=== PATIENT | female | born 1985 | race Caucasian/White ===

== ENCOUNTER 2016-10-20 10:46 | Inpatient (IN) | payer MEDICAID ==
[~2016-10-20] VITALS: Ht 165.1 cm; Wt 59.0 kg
[2016-10-20] VITALS (7 sets, daily range): BP systolic 118–144; BP diastolic 68–86
[~2016-10-20 10:46] MED LIST: BUPR-93 PO; CILO2.5OS OS; CIPR-278 PO
[2016-10-20] MEDS ORDERED: DIVA125T PO (11:09)
[2016-10-20] MEDS ORDERED: PANTOPRAZOLE SODIUM 40 MG DR TABLET PO ONE (11:45)
[2016-10-20] MEDS ORDERED: ONDANSETRON HCL 4 MG/2 ML VIAL IM ONE (11:45)
[2016-10-20 12:20] LABS: BASOPHILS % (AUTO) 0.9 % (0.0-2.0); EOSINOPHILS % (AUTO) 0.2 % (1.0-6.0); HEMATOCRIT 54.2 % (36-46); HEMOGLOBIN 17.3 g/dL (12.0-16.0); LYMPHOCYTES # (AUTO) 3.4 K/uL (1.0-4.8); LYMPHOCYTES % (AUTO) 18.9 % (22.0-44.0); MEAN CORPUSCULAR HEMOGLOBIN 26.1 pg (26.0-34.0); MEAN CORPUSCULAR HGB CONC 31.9 G/dL (31.0-37.0); MEAN CORPUSCULAR VOLUME 82 fL (80-100); MONOCYTES # (AUTO) 0.9 K/uL (0.1-1.0); MONOCYTES % (AUTO) 5.2 % (2.0-9.0); NEUTROPHILS # (AUTO) 13.4 K/uL (1.8-7.7); NEUTROPHILS % (AUTO) 74.8 % (40.0-70.0); PLATELET COUNT (AUTO) 391 K/uL (150-450); RED BLOOD CELL COUNT(AUTO) 6.61 MIL/uL (4.00-5.20); WHITE BLOOD COUNT (AUTO) 17.9 K/uL (4.5-11.0)
[2016-10-20 12:36] LABS: ANION GAP 11 mmol/L (8-16); CALCIUM, TOTAL 9.6 mg/dL (8.8-10.5); CARBON DIOXIDE 29 mmol/L (22-29); CHLORIDE 101 mmol/L (98-107); CREATININE 0.88 mg/dL (0.60-1.30); GLOMERULAR FILTR. RATE CALC > 60 mL/min (>60); POTASSIUM 3.7 mmol/L (3.5-5.1); SODIUM SERUM 141 mmol/L (136-145); UREA NITROGEN, BLOOD 25 mg/dL (7-18)
[2016-10-20 12:42] LABS: ALANINE AMINOTRANSFERASE 26 U/L (12-78); ALBUMIN 4.8 g/dL (3.4-5.0); ASPARTATE AMINOTRANSFERASE 11 U/L (15-37); BILIRUBIN,TOTAL 0.5 mg/dL (0.1-1.0); TOTAL PROTEIN, SERUM 8.8 g/dL (6.4-8.2)
[2016-10-20] MEDS ORDERED: IBUPROFEN 600 MG TABLET PO PRN (13:30)
[2016-10-20] MEDS ORDERED: PROMETHAZINE HCL 25 MG TABLET PO PRN (13:30)
[2016-10-20] MEDS ORDERED: MAGNESIUM HYDROXIDE SUSPENSION 30 ML UDCUP PO PRN (13:30)
[2016-10-20] MEDS ORDERED: HydrOXYzine PAMOATE 50 MG CAPSULE PO PRN (13:30)
[2016-10-20] MEDS ORDERED: MAG HYDROX/AL HYDROX/SIMETH ES 30 ML SUSPENSION UDCUP PO PRN ×2 (13:30)
[2016-10-20] MEDS ORDERED: TUBERCULIN, PURIFIED PROTEIN DERIVATIVE 5 TU/0.1 ML SYG ID ONE (13:30)
[2016-10-20] MEDS ORDERED: ACETAMINOPHEN 325 MG TABLET PO PRN ×2 (13:30→22:30)
[2016-10-20] MEDS ORDERED: LOPERAMIDE HCL 2 MG CAPSULE PO PRN (13:30)
[2016-10-20] MEDS ORDERED: CloNIDine HCL 0.1 MG TABLET PO PRN (13:30)
[2016-10-20] MEDS ORDERED: PROMETHAZINE HCL 25 MG/ML VIAL IM PRN (13:30)
[2016-10-20] MEDS: ACAMPROSATE CALCIUM 333 MG DR TABLET PO SCH ×2 (14:07→17:16)
[2016-10-20] MEDS: CloNIDine HCL 0.1 MG TABLET PO SCH ×2 (16:16→20:05)
[2016-10-20] MEDS: NICOTINE 21 MG/24 HOUR PATCH TD SCH (16:16)
[2016-10-20] MEDS: LORazepam 2 MG TABLET PO PRN ×2 (16:16→22:20)
[2016-10-20] MEDS ORDERED: PNEUMOCOCCAL VACCINE POLYVALENT 0.5 ML VIAL [PPSV23] IM ONE (17:30)
[2016-10-20] MEDS: ZOLPIDEM TARTRATE 10 MG TABLET PO PRN (20:06)
[2016-10-20] MEDS ORDERED: IBUPROFEN 400 MG TABLET PO PRN (22:30)
[2016-10-21 02:40] VITALS: BP 138/94
[2016-10-21] MEDS: LORazepam 2 MG TABLET PO PRN (05:37)
[2016-10-21] MEDS: CloNIDine HCL 0.1 MG TABLET PO SCH ×4 (06:36→21:21)
[2016-10-21 06:40] VITALS: BP 118/84
[2016-10-21] MEDS ORDERED: LORazepam 2 MG TABLET PO PRN (07:00)
[2016-10-21 08:37] VITALS: BP 140/85
[2016-10-21] MEDS: NICOTINE 21 MG/24 HOUR PATCH TD SCH ×4 (09:00→12:51)
[2016-10-21] MEDS: ACAMPROSATE CALCIUM 333 MG DR TABLET PO SCH ×3 (10:21→17:32)
[2016-10-21] MEDS: LEVOFLOXACIN 500 MG TABLET PO SCH (10:21)
[2016-10-21] MEDS: LORazepam 2 MG TABLET PO SCH ×4 (10:21→21:21)
[2016-10-21] MEDS: BACITRACIN 28.4 GM OINTMENT TP SCH ×2 (10:26→17:32)
[2016-10-21 12:34] VITALS: BP 120/72
[2016-10-21] MEDS: QUEtiapine FUMARATE 100 MG TABLET PO PRN (13:00)
[2016-10-21 15:40] VITALS: BP 124/76
[2016-10-21] MEDS: ZOLPIDEM TARTRATE 10 MG TABLET PO PRN (21:31)
[2016-10-22 00:40] VITALS: BP 132/92
[2016-10-22] MEDS: CloNIDine HCL 0.1 MG TABLET PO SCH ×4 (06:31→21:06)
[2016-10-22 07:54] LABS: BASOPHILS # (AUTO) 0.05 K/uL (0.00-0.20); BASOPHILS % (AUTO) 0.4 % (0.0-2.0); EOSINOPHILS # (AUTO) 0.47 K/uL (0.00-0.70); HEMOGLOBIN 16.5 g/dL (12.0-16.0); LYMPHOCYTES # (AUTO) 4.7 K/uL (1.0-4.8); LYMPHOCYTES % (AUTO) 37.5 % (22.0-44.0); MEAN CORPUSCULAR HEMOGLOBIN 26.2 pg (26.0-34.0); MEAN CORPUSCULAR HGB CONC 32.3 G/dL (31.0-37.0); MEAN CORPUSCULAR VOLUME 81 fL (80-100); MONOCYTES # (AUTO) 0.8 K/uL (0.1-1.0); MONOCYTES % (AUTO) 6.6 % (2.0-9.0); NEUTROPHILS # (AUTO) 6.5 K/uL (1.8-7.7); NEUTROPHILS % (AUTO) 51.7 % (40.0-70.0); PLATELET COUNT (AUTO) 312 K/uL (150-450); RED CELL DISTRIBUTION WIDTH 13.5 % (11.5-14.5); WHITE BLOOD COUNT (AUTO) 12.5 K/uL (4.5-11.0)
[2016-10-22 08:02] LABS: HEMOGLOBIN A1C 5.5 % (4.5-6.2)
[2016-10-22 08:31] LABS: ALANINE AMINOTRANSFERASE 23 U/L (12-78); ALBUMIN 3.8 g/dL (3.4-5.0); ANION GAP 12 mmol/L (8-16); ASPARTATE AMINOTRANSFERASE 8 U/L (15-37); BILIRUBIN,TOTAL 0.3 mg/dL (0.1-1.0); CALCIUM, TOTAL 8.8 mg/dL (8.8-10.5); CARBON DIOXIDE 28 mmol/L (22-29); CHLORIDE 102 mmol/L (98-107); CHOL/HDL RATIO 2.1 (3.9-5.7); CREATININE 0.89 mg/dL (0.60-1.30); GLOMERULAR FILTR. RATE CALC > 60 mL/min (>60); POTASSIUM 3.3 mmol/L (3.5-5.1); SODIUM SERUM 142 mmol/L (136-145); THYROID STIMULATING HORMONE 1.39 uIU/mL (0.36-3.74); TOTAL PROTEIN, SERUM 7.5 g/dL (6.4-8.2); UREA NITROGEN, BLOOD 18 mg/dL (7-18)
[2016-10-22 08:35] VITALS: BP 121/81
[2016-10-22] MEDS ORDERED: POTASSIUM CHLORIDE 20 MEQ ER TABLET PO ONE (09:00)
[2016-10-22] MEDS: LEVOFLOXACIN 500 MG TABLET PO SCH (09:43)
[2016-10-22] MEDS: LORazepam 2 MG TABLET PO SCH ×4 (09:43→21:06)
[2016-10-22] MEDS: OMEPRAZOLE 20 MG CAPSULE PO SCH (09:44)
[2016-10-22] MEDS: ACAMPROSATE CALCIUM 333 MG DR TABLET PO SCH ×3 (09:44→16:48)
[2016-10-22] MEDS: NICOTINE 21 MG/24 HOUR PATCH TD SCH (09:44)
[2016-10-22] MEDS: BACITRACIN 28.4 GM OINTMENT TP SCH ×2 (09:45→16:49)
[2016-10-22 16:00] VITALS: BP 110/72
[2016-10-22 21:00] VITALS: BP 124/90
[2016-10-22] MEDS: ZOLPIDEM TARTRATE 10 MG TABLET PO PRN (22:57)
[2016-10-23] VITALS (7 sets, daily range): BP systolic 111–124; BP diastolic 73–79
[2016-10-23] MEDS: CloNIDine HCL 0.1 MG TABLET PO SCH ×4 (06:18→21:02)
[2016-10-23] MEDS ORDERED: LORazepam 1 MG TABLET PO PRN (07:00)
[2016-10-23 07:59] LABS: BASOPHILS % (AUTO) 0.6 % (0.0-2.0); EOSINOPHILS % (AUTO) 4.2 % (1.0-6.0); HEMATOCRIT 46.7 % (36-46); LYMPHOCYTES # (AUTO) 4.3 K/uL (1.0-4.8); LYMPHOCYTES % (AUTO) 39.3 % (22.0-44.0); MEAN CORPUSCULAR HEMOGLOBIN 26.3 pg (26.0-34.0); MEAN CORPUSCULAR VOLUME 82 fL (80-100); MONOCYTES # (AUTO) 0.6 K/uL (0.1-1.0); MONOCYTES % (AUTO) 5.6 % (2.0-9.0); NEUTROPHILS # (AUTO) 5.5 K/uL (1.8-7.7); NEUTROPHILS % (AUTO) 50.3 % (40.0-70.0); PLATELET COUNT (AUTO) 259 K/uL (150-450); RED BLOOD CELL COUNT(AUTO) 5.68 MIL/uL (4.00-5.20); RED CELL DISTRIBUTION WIDTH 13.8 % (11.5-14.5); WHITE BLOOD COUNT (AUTO) 10.9 K/uL (4.5-11.0)
[2016-10-23] MEDS: ACAMPROSATE CALCIUM 333 MG DR TABLET PO SCH ×3 (08:58→16:11)
[2016-10-23] MEDS: NICOTINE 21 MG/24 HOUR PATCH TD SCH (08:58)
[2016-10-23] MEDS: LORazepam 1 MG TABLET PO SCH ×4 (08:59→20:28)
[2016-10-23] MEDS: LEVOFLOXACIN 500 MG TABLET PO SCH (08:59)
[2016-10-23] MEDS: OMEPRAZOLE 20 MG CAPSULE PO SCH (08:59)
[2016-10-23] MEDS: BACITRACIN 28.4 GM OINTMENT TP SCH ×2 (09:00→17:30)
[2016-10-23] MEDS: QUEtiapine FUMARATE 100 MG TABLET PO PRN (19:56)
[2016-10-23] MEDS: ZOLPIDEM TARTRATE 10 MG TABLET PO PRN (21:53)
[2016-10-24] VITALS (7 sets, daily range): BP systolic 117–130; BP diastolic 74–93
[2016-10-24] MEDS: CloNIDine HCL 0.1 MG TABLET PO SCH ×4 (06:30→21:38)
[2016-10-24] MEDS ORDERED: DULoxetine HCL 20 MG CAPSULE PO SCH (09:00)
[2016-10-24] MEDS: NICOTINE 21 MG/24 HOUR PATCH TD SCH (09:04)
[2016-10-24] MEDS: OMEPRAZOLE 20 MG CAPSULE PO SCH (09:04)
[2016-10-24] MEDS: ACAMPROSATE CALCIUM 333 MG DR TABLET PO SCH ×3 (09:04→16:37)
[2016-10-24] MEDS: LEVOFLOXACIN 500 MG TABLET PO SCH (09:04)
[2016-10-24] MEDS: BACITRACIN 28.4 GM OINTMENT TP SCH ×2 (09:05→18:31)
[2016-10-24] MEDS: LORazepam 1 MG TABLET PO PRN ×2 (09:35→16:37)
[2016-10-24] MEDS: QUEtiapine FUMARATE 100 MG TABLET PO PRN ×2 (12:11→19:25)
[2016-10-24] MEDS: ZOLPIDEM TARTRATE 10 MG TABLET PO PRN (21:38)
[2016-10-25 06:34] VITALS: BP 131/75
[2016-10-25] MEDS: CloNIDine HCL 0.1 MG TABLET PO SCH ×4 (07:01→20:52)
[2016-10-25 08:00] VITALS: BP 134/79
[2016-10-25] MEDS: ACAMPROSATE CALCIUM 333 MG DR TABLET PO SCH ×3 (08:45→17:10)
[2016-10-25] MEDS: NICOTINE 21 MG/24 HOUR PATCH TD SCH (08:45)
[2016-10-25] MEDS: LEVOFLOXACIN 500 MG TABLET PO SCH (08:45)
[2016-10-25] MEDS: DULoxetine HCL 20 MG CAPSULE PO SCH (08:45)
[2016-10-25] MEDS: OMEPRAZOLE 20 MG CAPSULE PO SCH (08:46)
[2016-10-25] MEDS: BACITRACIN 28.4 GM OINTMENT TP SCH ×2 (08:46→17:10)
[2016-10-25] MEDS: LORazepam 2 MG TABLET PO PRN ×2 (10:13→14:41)
[2016-10-25 14:40] VITALS: BP 113/78
[2016-10-25 16:00] VITALS: BP 130/73
[2016-10-25] MEDS: ZOLPIDEM TARTRATE 10 MG TABLET PO PRN (20:50)
[2016-10-26] MEDS: CloNIDine HCL 0.1 MG TABLET PO SCH ×3 (06:20→16:17)
[2016-10-26 06:45] VITALS: BP 124/90
[2016-10-26 08:11] VITALS: BP 133/77
[2016-10-26] MEDS: LORazepam 2 MG TABLET PO PRN ×2 (08:46→14:12)
[2016-10-26] MEDS: LEVOFLOXACIN 500 MG TABLET PO SCH (08:46)
[2016-10-26] MEDS: DULoxetine HCL 20 MG CAPSULE PO SCH (08:47)
[2016-10-26] MEDS: OMEPRAZOLE 20 MG CAPSULE PO SCH (08:47)
[2016-10-26] MEDS: ACAMPROSATE CALCIUM 333 MG DR TABLET PO SCH ×3 (08:47→16:17)
[2016-10-26] MEDS: NICOTINE 21 MG/24 HOUR PATCH TD SCH (09:00)
[2016-10-26] MEDS: BACITRACIN 28.4 GM OINTMENT TP SCH ×2 (10:01→16:17)
[2016-10-26 12:00] VITALS: BP 137/95
[2016-10-26] MEDS ORDERED: LEVO500T89 PO (15:51)
[2016-10-26] MEDS ORDERED: CLON.1 PO (15:54)
[2016-10-26] MEDS ORDERED: DULO20CA30 PO (15:55)
[2016-10-26] MEDS ORDERED: ACAM333T7 PO (15:55)
== END 2016-10-26 16:45 | disposition home or self-care (01) | DRG 753 ==
LOC: EMS 10:47 → B2S 13:52
PROVIDERS: ADMIT Psychiatry & Neurology Psychiatry; ATTEND Psychiatry & Neurology Psychiatry
PROC: HZ37ZZZ Individual Counseling for Substance Abuse Treatment, Motivational Enhancement (ICD-10-PCS; principal; 2016-10-21)
DX: F31.4 Bipolar disorder, current episode depressed, severe, without psychotic features (principal); R45.851 Suicidal ideations; Z91.14 Patient's other noncompliance with medication regimen; F17.210 Nicotine dependence, cigarettes, uncomplicated; D72.829 Elevated white blood cell count, unspecified; E86.0 Dehydration; F19.10 Other psychoactive substance abuse, uncomplicated; B18.2 Chronic viral hepatitis C; F43.10 Post-traumatic stress disorder, unspecified; K21.9 Gastro-esophageal reflux disease without esophagitis; Z53.29 Procedure and treatment not carried out because of patient's decision for other reasons; F15.90 Other stimulant use, unspecified, uncomplicated; F12.90 Cannabis use, unspecified, uncomplicated; G89.29 Other chronic pain; F10.10 Alcohol abuse, uncomplicated; F11.90 Opioid use, unspecified, uncomplicated; Z59.0 Homelessness; Z87.440 Personal history of urinary (tract) infections; Z88.1 Allergy status to other antibiotic agents; Z91.5 Personal history of self-harm; Z71.51 Drug abuse counseling and surveillance of drug abuser; Z79.899 Other long term (current) drug therapy
CPT/HCPCS: 83036; 84132; 84439; 84443; 86592; 87081; 90471; 96372; 99285; G0480; J2405; J2550